=== PATIENT | female | born 1995 | race Hispanic/Latino ===

== ENCOUNTER 2017-09-06 01:42 | Emergency (ER) | payer MEDICAID, OTHER ==
[2017-09-06] MEDS ORDERED: CYCLOBENZAPRINE HCL 10 MG TABLET ONE (02:31)
== END 2017-09-06 02:36 | disposition home or self-care (01) ==
LOC: EDH 01:42
DX: S39.012A Strain of muscle, fascia and tendon of lower back, initial encounter (principal); Z90.49 Acquired absence of other specified parts of digestive tract; X58.XXXA Exposure to other specified factors, initial encounter; Y93.89 Activity, other specified; Y92.89 Other specified places as the place of occurrence of the external cause; Y99.8 Other external cause status

== ENCOUNTER 2018-04-14 06:46 | Emergency (ER) | payer OTHER ==
[2018-04-14] MEDS ORDERED: KETOROLAC TROMETHAMINE 60 MG/2 ML VIAL ONE (07:18)
== END 2018-04-14 08:18 | disposition home or self-care (01) ==
LOC: EDH 06:46
DX: S90.01XA Contusion of right ankle, initial encounter (principal); G35 Multiple sclerosis; Z90.49 Acquired absence of other specified parts of digestive tract; Y00.XXXA Assault by blunt object, initial encounter; Y93.89 Activity, other specified; Y92.69 Other specified industrial and construction area as the place of occurrence of the external cause; Y99.8 Other external cause status
CPT/HCPCS: 73590; 73610; 96372; 99283; J1885

== ENCOUNTER 2018-08-27 06:12 | Emergency (ER) | payer OTHER ==
[2018-08-27] MEDS ORDERED: ACETAMINOPHEN ELIXIR 650 MG/20.3 ML UDCUP ONE (06:38)
[2018-08-27 07:00] LABS: BASOPHILS % (AUTO) 0.5 % (0.0-5.0); EOSINOPHILS % (AUTO) 0.3 % (0.0-8.0); HEMATOCRIT 37.9 % (36-48); LYMPHOCYTES % (AUTO) 26.2 % (21.0-51.0); MEAN CORPUSCULAR HEMOGLOBIN 25.8 pg (27.0-33.0); MEAN CORPUSCULAR HGB CONC 31.9 g/dL (32.0-36.0); MEAN CORPUSCULAR VOLUME 80.6 fL (80-100); MONOCYTES % (AUTO) 6.1 % (3.0-13.0); NEUTROPHILS % (AUTO) 66.9 % (40.0-77.0); PLATELET COUNT (AUTO) 231 K/uL (130-400); RED CELL DISTRIBUTION WIDTH 16.6 % (11.0-15.5); WHITE BLOOD COUNT (AUTO) 11.4 K/uL (4.8-10.8)
[2018-08-27 07:13] LABS: APPEARANCE,URINE Clear (CLEAR); BILIRUBIN,URINE Negative (NEGATIVE); COLOR,URINE Yellow (YELLOW); GLUCOSE, URINE (UA) Negative (NEGATIVE); KETONES,URINE Trace mg/dL (NEGATIVE); LEUKOCYTE ESTERASE ,URINE Small (NEGATIVE); NITRATE,URINE Negative (NEGATIVE); OCCULT BLOOD,URINE Negative (NEGATIVE); PROTEIN,URINE Negative (NEGATIVE)
[2018-08-27 07:26] LABS: BACTERIA,URINE Few /HPF (None Seen); MUCUS,URINE Moderate LPF (None Seen); RBC,URINE 0-1 /HPF (0-1); WBC,URINE 0-1 /HPF (0-1)
[2018-08-27 07:29] LABS: BILIRUBIN,TOTAL 0.3 mg/dL (0.2-1.0); CREATININE 0.5 mg/dL (0.5-1.5); TOTAL PROTEIN, SERUM 8.2 g/dL (6.0-8.3)
[2018-08-27 08:06] LABS: ALBUMIN 3.8 g/dL (3.5-5.0); POTASSIUM 3.7 mmol/L (3.5-5.1)
== END 2018-08-27 08:46 | disposition home or self-care (01) ==
LOC: EDH 06:12
DX: O9A.211 Injury, poisoning and certain other consequences of external causes complicating pregnancy, first trimester (principal); S39.011A Strain of muscle, fascia and tendon of abdomen, initial encounter; Z3A.08 8 weeks gestation of pregnancy; Z90.49 Acquired absence of other specified parts of digestive tract; X50.9XXA Other and unspecified overexertion or strenuous movements or postures, initial encounter; Y93.89 Activity, other specified; Y92.89 Other specified places as the place of occurrence of the external cause; Y99.8 Other external cause status
CPT/HCPCS: 36415; 76817; 80053; 81001; 84702; 85025

== ENCOUNTER 2020-03-07 01:51 | Emergency (ER) | payer BC, OTHER | END 2020-03-07 02:28 | disposition home or self-care (01) | LOC: EDH 01:51 | DX: S00.93XA Contusion of unspecified part of head, initial encounter (principal); Z90.49 Acquired absence of other specified parts of digestive tract; X58.XXXA Exposure to other specified factors, initial encounter; Y93.89 Activity, other specified; Y92.89 Other specified places as the place of occurrence of the external cause; Y99.8 Other external cause status | CPT/HCPCS: 99281 ==

== ENCOUNTER 2021-05-04 19:24 | Emergency (ER) | payer OTHER ==
[~2021-05-04] VITALS: Ht 162.6 cm; Wt 108.9 kg
[2021-05-04 20:32] VITALS: BP 112/75
[2021-05-04] MEDS ORDERED: IBUPROFEN 400 MG TABLET PO ONE (21:00)
[2021-05-04] MEDS ORDERED: CYCL10TA16 PO (21:17)
[2021-05-04] MEDS ORDERED: IBUP-2070 PO (21:17)
[2021-05-04] MEDS ORDERED: ORPHENADRINE CITRATE 30 MG/ML ML ONE (21:29)
[2021-05-04] MEDS ORDERED: ORPHENADRINE CITRATE 30 MG/ML ML IM ONE (21:30)
== END 2021-05-04 21:51 | disposition home or self-care (01) ==
LOC: EDH 19:24
DX: S49.91XA Unspecified injury of right shoulder and upper arm, initial encounter (principal); G35 Multiple sclerosis; Z90.49 Acquired absence of other specified parts of digestive tract; W22.8XXA Striking against or struck by other objects, initial encounter; Y93.89 Activity, other specified; Y92.89 Other specified places as the place of occurrence of the external cause; Y99.0 Civilian activity done for income or pay
CPT/HCPCS: 73030; 96372; 99283; J2360

== ENCOUNTER 2022-12-06 15:59 | Emergency (ER) | payer BC, OTHER ==
[~2022-12-06] VITALS: Ht 162.6 cm; Wt 104.3 kg
[~2022-12-06 15:59] MED LIST: CYCL10TA16 PO; IBUP-2070 PO
[2022-12-06] MEDS ORDERED: ONDANSETRON 4MG INJ IVP ONE (16:30)
[2022-12-06] MEDS ORDERED: MORPHINE 2 MG SYG IVP ONE (16:30)
[2022-12-06 16:46] LABS: BASOPHILS # (AUTO) 0.03 K/uL (0.00-0.20); BASOPHILS % (AUTO) 0.4 % (0.0-5.0); EOSINOPHILS # (AUTO) 0.08 K/uL (0.00-0.70); HEMATOCRIT 43.1 % (36-48); IMMATURE GRANULOCYTE ABSOLUTE 0.02 K/uL (0-1); LYMPHOCYTES # (AUTO) 2.3 K/uL (1.0-4.8); LYMPHOCYTES % (AUTO) 27.8 % (21.0-51.0); MEAN CORPUSCULAR HEMOGLOBIN 28.9 pg (27.0-33.0); MEAN CORPUSCULAR HGB CONC 33.4 g/dL (32.0-36.0); MEAN CORPUSCULAR VOLUME 86.5 fL (79-99); MONOCYTES # (AUTO) 0.5 K/uL (0.1-1.0); MONOCYTES % (AUTO) 5.7 % (3.0-13.0); NEUTROPHILS # (AUTO) 5.4 K/uL (1.8-7.7); NEUTROPHILS % (AUTO) 64.9 % (40.0-77.0); PLATELET COUNT (AUTO) 254 K/uL (130-400); RED BLOOD CELL COUNT(AUTO) 4.98 MIL/uL (4.00-5.50); RED CELL DISTRIBUTION WIDTH 13.4 % (11.0-15.5); WHITE BLOOD COUNT (AUTO) 8.3 K/uL (4.8-10.8)
[2022-12-06 16:53] LABS: CREATININE 0.6 mg/dL (0.5-1.5); POTASSIUM 3.8 mmol/L (3.5-5.1)
[2022-12-06 18:17] VITALS: BP 98/61; PULSE 75; RESP 18; O2SAT 99
[2022-12-06] MEDS ORDERED: CYCL10TA16 PO (18:49)
[2022-12-06] MEDS ORDERED: TRAM50TA4 PO (18:50)
[2022-12-06] MEDS ORDERED: ORPHENADRINE CITRATE 30 MG/ML ML IVP ONE (19:00)
== END 2022-12-06 19:12 | disposition home or self-care (01) ==
LOC: EDH 15:59
DX: S29.012A Strain of muscle and tendon of back wall of thorax, initial encounter (principal); G35 Multiple sclerosis; X58.XXXA Exposure to other specified factors, initial encounter; Y93.89 Activity, other specified; Y92.89 Other specified places as the place of occurrence of the external cause; Y99.0 Civilian activity done for income or pay
CPT/HCPCS: 99284; 96374; 96375; 80048; 84703; 85025; 36415; 72070; J2270; J2405; J2360

== ENCOUNTER 2023-06-28 18:52 | Emergency (ER) | payer OTHER, BC ==
[~2023-06-28] VITALS: Ht 162.6 cm; Wt 114.8 kg
[~2023-06-28 18:52] MED LIST changes: +TRAM50TA4 PO
[2023-06-28 20:46] VITALS: BP 117/72; PULSE 78; RESP 20; O2SAT 99
[2023-06-28] MEDS ORDERED: CYCL-309 PO (22:53)
[2023-06-28] MEDS ORDERED: IBUP-2077 PO (22:53)
[2023-06-28] MEDS: KETOROLAC 30MG VIAL (30MG/ML) IM ONE (23:01)
== END 2023-06-28 23:07 | disposition home or self-care (01) ==
LOC: EDH 19:31
DX: S16.1XXA Strain of muscle, fascia and tendon at neck level, initial encounter (principal); S00.83XA Contusion of other part of head, initial encounter; F41.9 Anxiety disorder, unspecified; F32.A Depression, unspecified; Z90.49 Acquired absence of other specified parts of digestive tract; Z79.899 Other long term (current) drug therapy
CPT/HCPCS: 99285; 70450; 81025; 72125; 96372; J1885